=== PATIENT | female | born 1985 | race Caucasian/White ===

== ENCOUNTER → 2016-06-30 | Outpatient (CLI) | payer OTHER ==
[2016-06-30 13:11] LABS: Glucose 73 mg/dL (74-99); Non-African American GFR(MDRD) >60 (>60 ml/min/1.73 sqM)
[2016-06-30 13:14] LABS: CH 33.2; HCT 36.7 % (34.0-46.0); HDW 2.24; HGB 12.4 gm/dL (11.4-16.0); MCHC 33.7 g/dL (31.0-37.0); MCV 97.9 fL (80.0-100.0); RBC 3.75 m/uL (3.80-5.40); RDW 12.3 % (11.5-15.5); WBC 7.7 k/uL (3.8-10.6)
[2016-06-30 13:40] LABS: Hepatitis B Surface Ag Index 0.04
[2016-06-30 19:32] LABS: Treponemal Ab Non-Reactive (Non-Reactive)
[2016-07-01 06:23] LABS: HIV-1/HIV-2 Ab Screen NONREAC (NON REAC)
== END | disposition home or self-care (01) ==
LOC: LABWHC1 12:11
PROVIDERS: ATTEND Obstetrics & Gynecology
DX: Z34.81 Encounter for supervision of other normal pregnancy, first trimester (principal); Z3A.00 Weeks of gestation of pregnancy not specified
CPT/HCPCS: 36415; 82565; 82947; 85027; 86762; 86777; 86778; 86780; 86850; 86900; 86901; 87340; 87389

== ENCOUNTER → 2016-08-25 | Outpatient (CLI) | payer OTHER ==
[2016-08-26 14:33] LABS: Mis test requested (Blood) AFP QUAD Screen
== END | disposition home or self-care (01) ==
LOC: LABWHC1 11:55
PROVIDERS: ATTEND Obstetrics & Gynecology
DX: Z34.82 Encounter for supervision of other normal pregnancy, second trimester (principal)
CPT/HCPCS: 36415; 82105; 82677; 84702; 86336

== ENCOUNTER → 2016-08-29 | Outpatient (CLI) | payer OTHER ==
--- NOTE | 2016-08-29 22:20 | US ---
EXAMINATION TYPE: US OB anatomy transabd DATE OF EXAM: 08/29/2016 4:15 PM COMPARISON: NONE HISTORY: 31-year-old female LGA TECHNIQUE: Transabdominal (TA) scanning. FINDINGS: EXAM MEASUREMENTS: GESTATIONAL AGE / DATING Physician Established: (19 weeks/2 days) EDC: 01/21/17 Dates by LMP: unknown Dates by First Scan: no prior Dates by Current Scan for: (19 weeks/6 days +/- 1 week 3 days) EDC: 01/17/17 SURVEY IUP: Single PLACENTA: Anterior PREVIA: No previa. The inferior placental margin may measure approximately 3 cm from the internal cer vical os. GISELA: 15.0 cm Normal CERVICAL LENGTH (transabdominal: norm > 3.0cm): 3.4 cm BIOMETRY PRESENTATION: Vertex LIE: Transverse lie with head maternal LT BPD: 4.6 cm 20 weeks / 0 days HC: 17.5 cm 20 weeks / 0 days AC: 14.4 cm 19 weeks / 5 days FL: 3.0 cm 19 weeks / 3 days ESTIMATED WEIGHT IN GRAMS: 304 grams ESTIMATED WEIGHT IN LBS/OZS: 0 lbs. 11 oz. WEIGHT PERCENTAGE BASED ON ESTABLISHED DATE: 67.2 % HC/AC: 1.22 normal FL/AC: 21.10 normal HEART RATE: 140 bpm RHYTHM: Normal ANATOMY SEEN (within normal limits): Lateral Vent (< 1 cm) 0.6 cm Cisterna Magna (< 1.1 cm) 0.3 cm Nuchal Fold (< 0.6 cm) 0.4 cm Cerebellum (varies with age) 1.8 cm Choroid Plexus (bilateral) Midline Falx Cavus Septi Pellucidi Four Chamber Heart Stomach Situs Nose / Lips Diaphragm Kidneys (bilateral) Bladder Cord Insert Three Vessel Cord Longitudinal Spine Transverse Spine Arms (bilateral) Legs (bilateral) ANATOMY SUBOPTIMALLY VISUALIZED: Outflow tracts: LVOT/RVOT TECHNOLOGIST NOTES: Single viable IUP 19wks/6days with GUSTAVO of 01/17/17 IMPRESSION: 1. Single live intrauterine with established gestational age of 19 weeks 2 days. Current ul trasound biometry is concordant (19 weeks 6 days) placing the child at the 67th percentile for weight . 2. The images of the outflow tracts are suboptimal. The oyster buyer notes a normal appearance during real-time scanning. If desired, the patient can be brought back for a rescan in 1 to 2 weeks. Otherwi se, the visualized structures appear normal.
== END | disposition home or self-care (01) ==
LOC: RADUSWWP 15:34
PROVIDERS: ATTEND Obstetrics & Gynecology
DX: O36.62X0 Maternal care for excessive fetal growth, second trimester, not applicable or unspecified (principal); Z3A.19 19 weeks gestation of pregnancy
CPT/HCPCS: 76811

== ENCOUNTER → 2016-10-24 | Outpatient (CLI) | payer OTHER ==
[2016-10-24 14:24] LABS: CH 32.8; HCT 35.8 % (34.0-46.0); HDW 2.36; HGB 11.7 gm/dL (11.4-16.0); MCH 32.7 pg (25.0-35.0); MCHC 32.7 g/dL (31.0-37.0); MCV 99.9 fL (80.0-100.0); Mean Platelet Volume 7.9; RBC 3.58 m/uL (3.80-5.40); RDW 12.7 % (11.5-15.5)
== END | disposition home or self-care (01) ==
LOC: LABWHC1 12:40
PROVIDERS: ATTEND Obstetrics & Gynecology
DX: Z34.92 Encounter for supervision of normal pregnancy, unspecified, second trimester (principal)
CPT/HCPCS: 36415; 82950; 85027; 86850

== ENCOUNTER 2017-01-16 05:40 | Inpatient (IN) | payer OTHER ==
[2017-01-12 15:04] VITALS: BMI 24.4
--- NOTE | 2017-01-13 07:32 | P.HPOB ---
History of Present Illness H&P Date: 01/13/17 Chief Complaint: Repeat and tubal ligation. This patient is a pleasant 31-year-old 3 para 2 female estimated date of confinement 01/21/2017 estimated gestational age 39-2/7 weeks gestation who is admitted to labor and delivery for elective repeat section and also requesting tubal ligation. Patient's history is such that she had a previous vaginal delivery followed by a section for active herpes outbreak. Patient initially wanted to this however did develop a herpes outbreak at approximately 13 weeks and she has requested repeat section at this time. She's had no other episodes. She is also requesting permanent sterilization. She is Spring see also was complicated by gestational diabetes which has been managed by maternal medicine with excellent control. Review of Systems Constitutional: Denies chills, Denies fever Ears, nose, mouth and throat: Denies headache, Denies sore throat Cardiovascular: Denies chest pain, Denies shortness of breath Respiratory: Denies cough Gastrointestinal: Reports heartburn Genitourinary: Reports Menstruation: Reports amenorrhea Integumentary: Denies pruritus, Denies rash Neurological: Denies numbness, Denies weakness Past Medical History Additional Past Medical History / Comment(s): GESTATIONAL DIABETES -DIET CONTROLLED. , GENITAL HERPES. History of Any Multi-Drug Resistant Organisms: None Reported Past Surgical History: Section Additional Past Surgical History / Comment(s): CYST REMOVED FROM BREAST Past Anesthesia/Blood Transfusion Reactions: No Reported Reaction, Motion Sickness Past Psychological History: No Psychological Hx Reported Smoking Status: Former smoker Past Alcohol Use History: Occasional Additional Past Alcohol Use History / Comment(s): NO ALCOHOL DURING . QUIT SMOKING 9 YEARS AGO, SMOKED FOR 14 YEARS. 1 PPD. Past Drug Use History: None Reported - Past Family History Mother Family Medical History: No Reported History Medications and Allergies Home Medications Medication Instructions Recorded Confirmed Type Acyclovir [Zovirax] 400 mg PO TID PRN 01/12/17 01/12/17 History Pnv No.95/Ferrous Fum/Folic AC 1 each PO DAILY 01/12/17 01/12/17 History [ Multivitamin Tablet] Allergies Allergy/AdvReac Type Severity Reaction Status Date / Time diphenhydramine AdvReac Unknown Rapid Verified 01/12/17 14:44 [From Benadryl] Heart Rate Exam - OBG Physical Exam Abdomen: bowel sounds normal, no diffuse tenderness, no bruit present, no guarding noted, no hepatomegaly, no splenomegaly, no mass Vulva: both: normal Vagina: normal moisture, no discharge Cervix: Cervix was previously closed in the office. Cervix: no lesion, no discharge Uterus: enlarged (Fundal height in the office was 39 cm.) Results blood work shows she is O negative, rubella immune, hepatitis B negative, RPR nonreactive, quad screen was negative, Glucola was 211, group B strep was negative. Patient did receive RhoGAM on November 03. Assessment and Plan (1) Third trimester Narrative/Plan: This patient is a pleasant 31-year-old 3 para 2 female 39-2/7 weeks gestation was admitted to labor and delivery for elective repeat section and also requesting tubal ligation. Patient understands a tubal ligation is a permanent procedure however there is a failure rate of approximately 20-25 per thousand procedures done. She understands if she does become she is a 50% chance of a tubal or an ectopic . Patient understands surgery itself and apparently has risks including risks of infection, bleeding, possible injury to bowel, bladder, vessels, and/or other organs. Patient understands risk of DVT pulmonary embolism. All the patient's questions are answered and a written consent is obtained. Plan is repeat low transverse section and bilateral partial salpingectomy. Cord blood for Rh status. Status: Acute (2) Previous delivery affecting Status: Acute (3) Family planning Status: Acute (4) Gestational diabetes Status: Acute (5) Rh negative status during Status: Acute
[2017-01-16] MEDS ORDERED: LACTATED RINGERS 1,000 ML IV ONE (06:37)
[2017-01-16] MEDS ORDERED: CITRIC ACID-SODIUM CITRATE 15 ML CUP PO ONE (06:37)
[2017-01-16 06:59] LABS: Glucose,Whole Blood 80 mg/dL (75-99)
[2017-01-16 07:07] LABS: Basophils % (A) 0 %; CHCM 34.7; Eosinophils # (A) 0.1 k/uL (0-0.7); Eosinophils % (A) 2 %; HCT 38.5 % (34.0-46.0); HDW 2.48; Luc # (Auto) 0.15; Luc % (Auto) 2; Lymphocytes # (A) 2.3 k/uL (1.0-4.8); Lymphocytes % (A) 28 %; MCH 33.3 pg (25.0-35.0); MCHC 33.9 g/dL (31.0-37.0); MCV 98.3 fL (80.0-100.0); Mean Platelet Volume 9.2; Monocytes # (A) 0.5 k/uL (0-1.0); Monocytes % (A) 6 %; Neutrophils # (A) 5.1 k/uL (1.3-7.7); Neutrophils % (A) 63 %; RBC 3.92 m/uL (3.80-5.40); RDW 13.8 % (11.5-15.5); WBC 8.1 k/uL (3.8-10.6); WBC (Perox) 8.52
[2017-01-16] MEDS ORDERED: ceFAZolin 2 GM in SODIUM CHLORIDE 0.9% 100 ML IVPB ONE (07:14)
[2017-01-16] MEDS: LACTATED RINGERS 1,000 ML IV SCH ×4 (07:33→23:55)
[2017-01-16] MEDS ORDERED: ONDANSETRON 4 MG/2 ML VIAL ONE (07:45)
[2017-01-16] MEDS ORDERED: KETOROLAC 30 MG/ML 1 ML VIAL ONE (07:45)
[2017-01-16] MEDS ORDERED: NALBUPHINE 10 MG/ML AMPUL ONE (07:45)
[2017-01-16] MEDS ORDERED: MORPHINE SULFATE (PF) 0.3 MG/0.3 ML SYR ONE (07:45)
[2017-01-16] MEDS ORDERED: OXYTOCIN 10 UNIT/ML 1 ML VIAL ONE (07:45)
[2017-01-16] MEDS ORDERED: diphenhydrAMINE 50 MG/ML 1 ML VIAL IVP PRN (08:28)
[2017-01-16] MEDS ORDERED: Rhogam IMMUNE GLOBULIN 1,500 UNIT/1 ML IM ONE (08:28)
[2017-01-16] MEDS ORDERED: METOCLOPRAMIDE 5 MG/ML 2 ML VIAL IVP PRN (08:28)
[2017-01-16] MEDS ORDERED: ZOLPIDEM 5 MG TAB PO PRN (08:28)
[2017-01-16] MEDS ORDERED: ONDANSETRON 4 MG/2 ML VIAL IVP PRN (08:28)
[2017-01-16] MEDS ORDERED: ACETAMINOPHEN TAB 325 MG TAB PO PRN (08:28)
[2017-01-16] MEDS ORDERED: OXYTOCIN 20 UNITS/1000 ML NS 1,000 ML IV SCH (08:28)
[2017-01-16] MEDS ORDERED: SIMETHICONE 80 MG CHEWABLE PO PRN (08:28)
[2017-01-16] MEDS ORDERED: NALOXONE 0.4 MG/ML 1 ML VIAL IV PRN (08:28)
[2017-01-16] MEDS ORDERED: diphenhydrAMINE 25 MG CAP PO PRN (08:28)
--- NOTE | 2017-01-16 08:33 | P.OP ---
Date of Procedure: 01/16/17 Preoperative Diagnosis: #1: 39-2/7 week intrauterine . #2: Previous section desires repeat. #3: Multi parity desires permanent sterilization. Postoperative Diagnosis: Same Procedure(s) Performed: Repeat low transverse section and bilateral partial salpingectomy Implants: Anesthesia: spinal Surgeon: Buck Goldstein Household Chores #1: Sameera Rudd Estimated Blood Loss (ml): 600 Pathology: other (Placenta and bilateral fallopian tube segments) Condition: stable Disposition: floor Indications for Procedure: Please see dictated H&P for intimate details of this patient's admission. Brief summary this is a pleasant 31-year-old 3 para 2 female 39-2/7 weeks gestation who is admitted to labor and delivery for elective repeat section and also requesting permanent sterilization. Patient does understand a tubal ligation is considered permanent, however there is a failure rate of approximately 20-25 per thousand procedures done. Patient understands that surgery itself has risks including risks of infection, bleeding, possible injury bowel, bladder, vessels, and/or other organs. Understands risk of DVT and pulmonary embolism. All the patient's questions are answered and a written consent is obtained. Operative Findings: This is a vigorous viable male infant Apgars 8 and 9 delivery time was 0759 hours. Patient's uterus tubes and ovaries appear normal for term gestation. Description of Procedure: This patient has a Weems catheter placed to straight drain. She was subsequently taken to the operating room where she sat up and spinal anesthetic is administered without incident. With an adequate level of anesthesia she has abdominal prep and drape. Scalpels and taken the previous Pfannenstiel incision is then incised. I did remove the previous scar. Using a second scalpel I then incised down to the fascia. Fascia is then scored with scalpel and extended bilaterally using the Montiel scissors. Fascia is dissected off the rectus muscles sharply. Fascial incision extended bilaterally. The peritoneum was then identified and entered sharply. Peritoneal incision extended superior and inferior without difficulty. Bladder blade is then placed. Bladder peritoneum was taken down sharply with the Metzenbaum scissors. Scalpels and taken low transverse uterine incision is then made. Using a hemostat enter the uterine cavity bluntly and there is loss of clear fluid. This incision is extended bluntly as well. The 's head is then gently guided through the incision with fundal pressure delivered. Mouth and nares are bulb suctioned. There is no evidence of a nuchal cord. Then have delivery anterior posterior shoulder and rest this 's body. This is a vigorous viable male infant Apgars are 8 and 9 delivery time was 0759 hrs. After delivery of the infant the umbilical cord is doubly clamped and cut. Placenta is then manually extracted intact. Uterus is then externalized and uterine incision demarcated with Ramirez clamps. Uterine incision closed using 0 Vicryl in 2 layers. Excellent hemostasis is noted. Bladder peritoneum was then reapproximated using 3-0 Vicryl. Then turned my attention to the left fallopian tube approximately 4 cm from its cornual insertion a small window is made to the mesial salpinx with Bovie cautery. Using a 2-0 silk I doubly ligate the tube on both sides. Approximately 2 cm segment of tube was excised and handed off to pathology. Turned my attention of the right side and using similar technique ligate a section of the right fallopian tube. Again good hemostasis is noted. Excess fluid is removed from the abdomen and pelvis. Uterus placed back into the abdomen. Final inspection of the tubal ends and uterine incision showed be hemostatic. The parietal peritoneum was then closed using 0 Vicryl running fashion. Rectus muscle reapproximate 0 Vicryl interrupted fashion. Fascia is then closed using 0 PDS. Fascial incision is intact and hemostatic. Subcutaneous tissues and closed using a 3-0 Vicryl. Skin is and closed using deric. All counts are correct 3. There are no complications. Infant and mother stable delivery room.
[2017-01-16] MEDS: SENNOSIDES-DOCUSATE SODIUM 1 EACH TAB PO SCH ×2 (13:08→19:41)
[2017-01-16] MEDS ORDERED: SCOPOLAMINE 1.5MG/72HR PATCH TRANSDERM STA (19:36)
[2017-01-16] MEDS: KETOROLAC 30 MG/ML 1 ML VIAL IVP PRN (22:33)
[2017-01-17] MEDS: LACTATED RINGERS 1,000 ML IV SCH ×2 (03:57→19:56)
--- NOTE | 2017-01-17 06:07 | P.PNOBGPC ---
Subjective - Subjective Patient reports: Reports appetite normal, Reports pain well controlled, Reports ambulating normally : doing well, in NICU Objective - Vital Signs Latest vital signs: Vital Signs Temp Pulse Resp BP Pulse Ox 01/17/17 06:02 16 01/17/17 04:00 98.2 F 63 16 97/57 98 01/17/17 02:00 14 97 01/17/17 00:00 97.8 F 67 16 107/67 97 01/16/17 22:00 16 98 01/16/17 20:00 97.7 F 63 16 126/74 98 01/16/17 15:35 98.1 F 60 16 120/74 99 01/16/17 12:00 98.6 F 75 17 107/63 01/16/17 10:29 58 L 17 104/63 98 01/16/17 09:59 58 L 17 108/60 99 01/16/17 09:29 62 17 109/64 98 01/16/17 09:14 72 16 100/55 98 01/16/17 08:59 70 18 116/75 98 01/16/17 08:44 71 17 97/62 98 01/16/17 08:29 96.2 F L 71 17 103/67 98 01/16/17 06:39 96.7 F L 76 17 117/61 98 Intake and Output 01/16/17 01/16/17 01/17/17 14:59 22:59 06:59 Intake Total 100 1000 Output Total 550 300 Balance -450 700 Intake: Intake, IV Titration 1000 Amount Lactated Ringers 1,000 ml 1000 @ 125 mls/hr IV .Q8H [facility] Rx#:[id number] Oral 100 Output: Urine 500 300 Straight 300 Uretheral (Weems) 500 Emesis 50 Other: # Emeses 2 - Exam Lungs: bilateral: normal Chest: Normal S1, Normal S2 Extremities: Present: normal Abdomen: Present: normal appearance, soft. Absent: distention, tenderness Incision: Present: normal, dry, intact Uterus: Present: normal, firm Assessment and Plan (1) Third trimester Narrative/Plan: Postoperative day #1. Patient had some nausea and vomiting yesterday however this has resolved. She also has had some urinary retention related to her Duramorph spinal and has had to have intermittent catheterization. Patient is tolerating regular food today. Plan is to check a CBC, encourage continued ambulation, catheterize as needed but if she continues the straight catheter put a Weems to straight drain to rest her bladder for a bit. Continue routine care otherwise. Current Visit: Yes Status: Acute Code(s): Z34.93 - ENCNTR FOR SUPRVSN OF NORMAL PREG, UNSP, THIRD TRIMESTER SNOMED Code(s): 73958494 (2) Previous delivery affecting Current Visit: Yes Status: Acute Code(s): O34.219 - MATERNAL CARE FOR UNSP TYPE SCAR FROM PREVIOUS DEL SNOMED Code(s): 901682112 (3) Family planning Current Visit: Yes Status: Acute Code(s): Z30.09 - ENCOUNTER FOR OTH GENERAL CNSL AND ADVICE ON CONTRACEPTION SNOMED Code(s): 73768910 (4) Gestational diabetes Current Visit: Yes Status: Acute Code(s): O24.419 - GESTATIONAL DIABETES MELLITUS IN , UNSP CONTROL SNOMED Code(s): 22954782 (5) Rh negative status during Current Visit: Yes Status: Acute Code(s): O09.899 - SUPERVISION OF OTHER HIGH RISK PREGNANCIES, UNSP TRIMESTER SNOMED Code(s): 041491857
[2017-01-17] MEDS: KETOROLAC 30 MG/ML 1 ML VIAL IVP PRN (06:32)
[2017-01-17] MEDS: SENNOSIDES-DOCUSATE SODIUM 1 EACH TAB PO SCH ×2 (07:49→19:39)
[2017-01-17 08:03] LABS: Basophils % (A) 0 %; CHCM 33.9; Eosinophils # (A) 0.1 k/uL (0-0.7); Eosinophils % (A) 1 %; HGB 11.5 gm/dL (11.4-16.0); Luc # (Auto) 0.13; Luc % (Auto) 1; Lymphocytes # (A) 1.9 k/uL (1.0-4.8); Lymphocytes % (A) 16 %; MCH 33.1 pg (25.0-35.0); MCHC 32.8 g/dL (31.0-37.0); MCV 100.6 fL (80.0-100.0); Mean Platelet Volume 9.3; Monocytes # (A) 0.5 k/uL (0-1.0); Monocytes % (A) 4 %; Neutrophils # (A) 8.8 k/uL (1.3-7.7); Neutrophils % (A) 77 %; RBC 3.47 m/uL (3.80-5.40); RDW 13.6 % (11.5-15.5); WBC 11.4 k/uL (3.8-10.6); WBC (Perox) 11.46
--- NOTE | 2017-01-17 09:08 | P.PN ---
Progress Note - Text Date: 01/17/2017 Time: 706 The patient is status post section Vital signs stable VAS:0-10 Patient has no complaints of pain. The patient incurred some minimal itching yesterday, this itching is now subsiding. Pain meds to be managed by service.
[2017-01-17] MEDS: IBUPROFEN 600 MG TAB PO PRN ×2 (13:45→19:39)
[2017-01-17] MEDS: Acetaminophen-Codeine 300-30mg TAB PO PRN (23:00)
[2017-01-18] MEDS: Acetaminophen-Codeine 300-30mg TAB PO PRN ×4 (00:54→22:18)
[2017-01-18] MEDS: IBUPROFEN 600 MG TAB PO PRN ×2 (04:01→17:56)
--- NOTE | 2017-01-18 06:41 | P.PNOBGPC ---
Subjective - Subjective Patient reports: Reports appetite normal, Reports voiding normally, Reports pain well controlled, Reports ambulating normally : doing well, in NICU Objective - Vital Signs Latest vital signs: Vital Signs Temp Pulse Resp BP Pulse Ox 01/17/17 23:50 98.7 F 66 16 120/69 01/17/17 16:00 98.5 F 74 20 116/68 100 01/17/17 08:00 98.6 F 69 20 124/59 99 Intake and Output 01/17/17 01/17/17 01/18/17 14:59 22:59 06:59 Output Total 1200 Balance -1200 Output: Urine 1200 Other: # Voids 1 - Exam Lungs: bilateral: normal Chest: Normal S1, Normal S2 Extremities: Present: normal Abdomen: Present: normal appearance, soft. Absent: distention, tenderness Incision: Present: normal, dry, intact Uterus: Present: normal, firm - Labs Labs: Abnormal Lab Results - Last 24 Hours (Table) 01/17/17 Range/Units 07:50 WBC 11.4 H (3.8-10.6) k/uL RBC 3.47 L (3.80-5.40) m/uL MCV 100.6 H (80.0-100.0) fL Neutrophils # 8.8 H (1.3-7.7) k/uL Assessment and Plan (1) Third trimester Narrative/Plan: Post day #2. Patient is resting without complaints. Vital signs are stable and she is afebrile. Uterus is firm nontender and her incision is intact and dry. Patient is able to urinate without difficulty and tolerating regular diet. CBC yesterday was normal. Plan today is to continue routine postoperative care. Possible discharge home tomorrow. Current Visit: Yes Status: Acute Code(s): Z34.93 - ENCNTR FOR SUPRVSN OF NORMAL PREG, UNSP, THIRD TRIMESTER SNOMED Code(s): 56187091 (2) Previous delivery affecting Current Visit: Yes Status: Acute Code(s): O34.219 - MATERNAL CARE FOR UNSP TYPE SCAR FROM PREVIOUS DEL SNOMED Code(s): 198645544 (3) Family planning Current Visit: Yes Status: Acute Code(s): Z30.09 - ENCOUNTER FOR OTH GENERAL CNSL AND ADVICE ON CONTRACEPTION SNOMED Code(s): 27105520 (4) Gestational diabetes Current Visit: Yes Status: Acute Code(s): O24.419 - GESTATIONAL DIABETES MELLITUS IN , UNSP CONTROL SNOMED Code(s): 04327803 (5) Rh negative status during Current Visit: Yes Status: Acute Code(s): O09.899 - SUPERVISION OF OTHER HIGH RISK PREGNANCIES, UNSP TRIMESTER SNOMED Code(s): 638242407
[2017-01-18] MEDS: SENNOSIDES-DOCUSATE SODIUM 1 EACH TAB PO SCH ×2 (11:24→19:26)
[2017-01-18 16:52] VITALS: RESP 16
--- NOTE | 2017-01-19 06:35 | P.PNOBGPC ---
Subjective - Subjective Patient reports: Reports appetite normal, Reports voiding normally, Reports pain well controlled, Reports ambulating normally : doing well Objective - Vital Signs Latest vital signs: Vital Signs Temp Pulse Resp BP Pulse Ox 01/19/17 00:00 97.6 F 62 16 122/74 01/18/17 16:00 98.4 F 86 16 123/78 01/18/17 08:00 98.4 F 82 12 111/69 97 Intake and Output 01/18/17 01/18/17 01/19/17 14:59 22:59 06:59 Other: # Voids 1 - Exam Lungs: bilateral: normal Chest: Normal S1, Normal S2 Extremities: Present: normal Abdomen: Present: normal appearance, soft. Absent: distention, tenderness Incision: Present: normal, dry, intact Uterus: Present: normal, firm Assessment and Plan (1) Third trimester Narrative/Plan: Postoperative day #3. Patient is resting without complaints. Vital signs are stable she's afebrile. Uterus is firm nontender and her incision is intact and dry. My impression this is a normal postoperative course. Plan is to continue routine postoperative care and discharge home today. Current Visit: Yes Status: Acute Code(s): Z34.93 - ENCNTR FOR SUPRVSN OF NORMAL PREG, UNSP, THIRD TRIMESTER SNOMED Code(s): 43344272 (2) Previous delivery affecting Current Visit: Yes Status: Acute Code(s): O34.219 - MATERNAL CARE FOR UNSP TYPE SCAR FROM PREVIOUS DEL SNOMED Code(s): 584361089 (3) Family planning Current Visit: Yes Status: Acute Code(s): Z30.09 - ENCOUNTER FOR OTH GENERAL CNSL AND ADVICE ON CONTRACEPTION SNOMED Code(s): 70062610 (4) Gestational diabetes Current Visit: Yes Status: Acute Code(s): O24.419 - GESTATIONAL DIABETES MELLITUS IN , UNSP CONTROL SNOMED Code(s): 50738352 (5) Rh negative status during Current Visit: Yes Status: Acute Code(s): O09.899 - SUPERVISION OF OTHER HIGH RISK PREGNANCIES, UNSP TRIMESTER SNOMED Code(s): 383615489
--- NOTE | 2017-01-19 06:38 | P.DS ---
Providers Date of admission: 01/16/17 05:40 Expected date of discharge: 01/19/17 Attending physician: Buck Goldstein Primary care physician: Almas Talamantes - Discharge Diagnosis(es) (1) Third trimester Current Visit: Yes Status: Acute (2) Previous delivery affecting Current Visit: Yes Status: Acute (3) Family planning Current Visit: Yes Status: Acute (4) Gestational diabetes Current Visit: Yes Status: Acute (5) Rh negative status during Current Visit: Yes Status: Acute Hospital Course: Please see dictated H&P for this patient's admission. Brief summary this is a pleasant 31-year-old 3 para 2 female 39-2/7 weeks gestation admitted to labor and delivery for elective repeat section and tubal ligation. Patient undergoes above-named surgery. Please see dictated operative note. Postoperative 3 patient's felt be stable for discharge home follow up with me in 1 week for an incision check. Procedures: Repeat low transverse section and bilateral partial salpingectomy. Patient Condition at Discharge: Good Plan - Discharge Summary New Discharge Prescriptions: New Acetaminophen-Codeine 300-30mg [Tylenol w/codeine #3] 1 - 2 each PO Q4HR PRN #40 tab PRN Reason: Mild Pain Ibuprofen [Motrin] 600 mg PO Q6HR PRN #40 tab PRN Reason: Mild Pain Or Fever >= 100.5 No Action Acyclovir [Zovirax] 400 mg PO TID PRN PRN Reason: genital herpes Pnv No.95/Ferrous Fum/Folic AC [ Multivitamin Tablet] 1 each PO DAILY Discharge Medication List Acyclovir [Zovirax] 400 mg PO TID PRN 01/12/17 [History] Pnv No.95/Ferrous Fum/Folic AC [ Multivitamin Tablet] 1 each PO DAILY [History] Acetaminophen-Codeine 300-30mg [Tylenol w/codeine #3] 1 - 2 each PO Q4HR PRN # 40 tab 01/19/17 [Rx] Ibuprofen [Motrin] 600 mg PO Q6HR PRN #40 tab 01/19/17 [Rx] Follow up Appointment(s)/Referral(s): Buck Goldstein MD [STAFF PHYSICIAN] - 01/24/17 2:00 pm (Patient also has a visit on February 28 at 10:15 AM.) Patient Instructions/Handouts: (DC) Activity/Diet/Wound Care/Special Instructions: No strenuous activity or heavy lifting for 6 weeks. No intercourse for 6 weeks. Please call if any fever, chills, excessive vaginal bleeding, and/or abdominal pain. Discharge Disposition: HOME SELF-CARE
[2017-01-19] MEDS: Acetaminophen-Codeine 300-30mg TAB PO PRN (06:39)
[2017-01-19] MEDS: SENNOSIDES-DOCUSATE SODIUM 1 EACH TAB PO SCH (07:40)
[2017-01-19 08:46] VITALS: BP 120/75; PULSE 76; TEMP 98.5
== END 2017-01-19 10:56 | disposition home or self-care (01) | DRG 765 ==
LOC: 4FBP 05:40
PROVIDERS: ADMIT Obstetrics & Gynecology; ATTEND Obstetrics & Gynecology
PROC: 0UB70ZZ Excision of Bilateral Fallopian Tubes, Open Approach (ICD-10-PCS; 2017-01-16)
PROC: 3E0234Z Introduction of Serum, Toxoid and Vaccine into Muscle, Percutaneous Approach (ICD-10-PCS; 2017-01-16)
PROC: 10D00Z1 Extraction of Products of Conception, Low, Open Approach (ICD-10-PCS; principal; 2017-01-16 08:00)
DX: O34.211 Maternal care for low transverse scar from previous cesarean delivery (principal); O98.311 Other infections with a predominantly sexual mode of transmission complicating pregnancy, first trimester; O24.420 Gestational diabetes mellitus in childbirth, diet controlled; O26.893 Other specified pregnancy related conditions, third trimester; A60.00 Herpesviral infection of urogenital system, unspecified; Z3A.39 39 weeks gestation of pregnancy; Z37.0 Single live birth; Z30.2 Encounter for sterilization; Z67.41 Type O blood, Rh negative; T40.2X5A Adverse effect of other opioids, initial encounter; R33.0 Drug induced retention of urine; N85.8 Other specified noninflammatory disorders of uterus; Z87.891 Personal history of nicotine dependence; Z79.899 Other long term (current) drug therapy; Z88.8 Allergy status to other drugs, medicaments and biological substances; Y92.234 Operating room of hospital as the place of occurrence of the external cause
CPT/HCPCS: 85025; 85461; 86850; 86870; 86880; 86900; 86901; 88302; 88307

== ENCOUNTER → 2019-01-14 | Outpatient (CLI) | payer OTHER ==
[2019-01-14 12:39] LABS: Basophils # (A) 0.1 k/uL (0-0.2); Basophils % (A) 1 %; Eosinophils # (A) 0.1 k/uL (0-0.7); Eosinophils % (A) 1 %; HCT 41.8 % (34.0-46.0); HGB 14.1 gm/dL (11.4-16.0); Lymphocytes % (A) 33 %; MCH 32.7 pg (25.0-35.0); MCHC 33.6 g/dL (31.0-37.0); MCV 97.4 fL (80.0-100.0); Mean Platelet Volume 7.6; Monocytes # (A) 0.4 k/uL (0-1.0); Monocytes % (A) 5 %; Neutrophils # (A) 5.3 k/uL (1.3-7.7); Neutrophils % (A) 59 %; Platelet Count 212 k/uL (150-450); RDW 12.7 % (11.5-15.5)
== END | disposition home or self-care (01) ==
LOC: LABWHC1 12:13
PROVIDERS: ATTEND Obstetrics & Gynecology
DX: Z01.812 Encounter for preprocedural laboratory examination (principal)
CPT/HCPCS: 36415; 85025

== ENCOUNTER 2019-01-24 06:18 | Day surgery (SDC) | payer OTHER ==
[2019-01-21 17:38] VITALS: BMI 18.8
--- NOTE | 2019-01-23 07:13 | P.HPOB ---
History of Present Illness H&P Date: 01/23/19 Chief Complaint: Menorrhagia. This patient is a pleasant 33-year-old 3 para 3 female who presented to my office with complaints of long heavy menstrual cycles. She's had a tubal ligation in the past and did not want any hormone therapy. Patient is requesting NovaSure endometrial ablation at this time. Review of Systems Menstruation: Reports menses 8 or > days, Reports period heavy Past Medical History Additional Past Medical History / Comment(s): Hx. GENITAL HERPES-no current issues, frequent heavy periods History of Any Multi-Drug Resistant Organisms: None Reported Past Surgical History: Breast Surgery, Section, Tubal Ligation Additional Past Surgical History / Comment(s): CYST REMOVED FROM BREAST, C/S x2 Past Anesthesia/Blood Transfusion Reactions: Motion Sickness, Postoperative Nausea & Vomiting (PONV) Past Psychological History: No Psychological Hx Reported Smoking Status: Former smoker Past Alcohol Use History: None Reported Past Drug Use History: None Reported - Past Family History Mother Family Medical History: No Reported History Medications and Allergies Home Medications Medication Instructions Recorded Confirmed Type valACYclovir HCL [Valtrex] 1 gm PO DAILY 01/21/19 01/21/19 History Allergies Allergy/AdvReac Type Severity Reaction Status Date / Time diphenhydramine AdvReac Unknown Rapid Verified 01/21/19 17:25 [From Benadryl] Heart Rate Exam - OBG Physical Exam Abdomen: bowel sounds normal, no diffuse tenderness, no bruit present, no guarding noted, no hepatomegaly, no splenomegaly, no mass Vulva: both: normal Vagina: normal moisture, no discharge Cervix: no lesion, no discharge Uterus: normal size, normal contour Assessment and Plan Assessment: This is a pleasant 33-year-old 3 para 3 female with long-standing menorrhagia requesting endometrial ablation. Plan is hysteroscopy, D&C, NovaSure endometrial ablation. Patient understands this surgery and risks including risks of infection, bleeding, possible uterine perforation, and/or thermal injury. All the patient's questions have been answered and a written consent is obtained. (1) Menorrhagia Status: Acute Code(s): N92.0 - EXCESSIVE AND FREQUENT MENSTRUATION WITH REGULAR CYCLE SNOMED Code(s): 283511110
[~2019-01-24 06:18] MED LIST: DEXAMETHASONE SOD PHOSPHATE 10 MG/ML 1 ML VIAL IV ONE; HYDROmorphone 0.5 MG/0.5 ML SYRINGE IVP PRN; LACTATED RINGERS 1,000 ML IV SCH; ONDANSETRON 4 MG/2 ML VIAL IVP ONE; Pre Op ABX Message 1 EACH MISC MISCELLANE ONE
[2019-01-24] MEDS ORDERED: LIDOCAINE 1% 20 ML VIAL (10MG/ML) FOR IV START INTRADERMA ONE (06:45)
[2019-01-24] MEDS ORDERED: SCOPOLAMINE 1.5MG/72HR PATCH TRANSDERM ONE (06:57)
[2019-01-24] MEDS ORDERED: LIDOCAINE 1% INJ 10MG/ML (20 ML MDV) ONE (07:12)
[2019-01-24] MEDS ORDERED: fentaNYL (PF) 50 MCG/ML 2 ML AMP ONE (07:12)
[2019-01-24] MEDS ORDERED: MIDAZOLAM 2 MG/2 ML VIAL ONE (07:12)
[2019-01-24] MEDS ORDERED: PROPOFOL 10 MG/ML 20 ML VIAL IV ONE (07:12)
[2019-01-24 07:54] VITALS: TEMP 97.5
--- NOTE | 2019-01-24 07:55 | P.OP ---
Date of Procedure: 01/24/19 Preoperative Diagnosis: Menorrhagia Postoperative Diagnosis: Same Procedure(s) Performed: #1: Hysteroscopy. 2: Dilation and curettage. #3: NovaSure endometrial ablation Anesthesia: MAC Surgeon: Buck Goldstein Estimated Blood Loss (ml): 10 IV fluids (ml): 600 Urine output (ml): 15 Pathology: other (Uterine curettings) Condition: stable Disposition: PACU Indications for Procedure: Please see dictated H&P for intimate details of this patient's admission. Brief summary is a pleasant 33-year-old multiparous patient who's had long-standing menorrhagia requesting NovaSure endometrial ablation for treatment. Patient I have discussed the surgery and risks including risks of infection, bleeding, possible uterine perforation, and/or thermal injury. All the patient's questions are answered and a written consent is obtained. Operative Findings: This patient is a normal appearing endometrial cavity. Description of Procedure: This patient is taken to the operating room where she is laid in the supine position. She subsequent undergoes general mask anesthesia without incident. With an adequate level of anesthesia she's placed in dorsal lithotomy position. She has a vaginal and perineal prep and drape. Examination under anesthesia shows a mid position uterus of normal size. The bladder is drained at this time for 15 mL of clear urine. Weighted speculum placed in the posterior vagina. Anterior lip of the cervix is grabbed with an Allis clamp. Uterus is then sounded this time to 8 cm. Gentle dilation is done of the endocervix to allow the hysteroscope easily and uterine cavity. Using saline solution hysteroscopy is performed uterine cavity is visualized and appears to be normal. Uterine cavity is measured a length of 5.5 cm. This done the cervix is dilated gently more to allow a small curette easily uterine cavity a gentle but thorough 4 quadrant curettage is done for adequate sampling. With this done the NovaSure device is then opened appears to be intact. It is set at a length of 5.5 cm is then seated in place and opens up to a width of 4.7 cm. At this time the cavity integrity test is done and it passes. It is then enabled for 55 seconds. With this done the NovaSure device is then removed and appears to be intact. Hysteroscopy is once again performed and the uterine cavity appears to be ablated up to the endocervix. At this time the procedure is ended. The Allis clamp and weighted speculum removed. All counts correct 3. There are no complications. Patient is awakened from anesthesia and taken recovery room in satisfactory condition.
[2019-01-24 08:59] VITALS: RESP 16
[2019-01-24 09:41] VITALS: BP 118/80; PULSE 63
== END 2019-01-24 09:52 | disposition home or self-care (01) ==
LOC: OR 06:18
PROVIDERS: ATTEND Obstetrics & Gynecology
DX: N92.0 Excessive and frequent menstruation with regular cycle (principal); Z98.51 Tubal ligation status; Z87.891 Personal history of nicotine dependence; B00.9 Herpesviral infection, unspecified; Z79.899 Other long term (current) drug therapy; Z88.8 Allergy status to other drugs, medicaments and biological substances
CPT/HCPCS: 58563; 88305; 81025; J2250; J1100; J2405; J2001; J3010; J2704

== ENCOUNTER → 2024-03-14 | Outpatient (CLI) | payer BC ==
--- NOTE | 2024-03-14 14:26 | MM ---
Reason for Exam: Screening (asymptomatic). Baseline mammogram. Patient History: Menarche at age 11. First Full-Term at age 16. Bilateral Implants. Maternal grandmother had breast cancer. Last menstrual period: 02/23/2024 Risk Values: Kalyn 5 year model risk: 0.4%. NCI Lifetime model risk: 7.3%. Prior Study Comparison: Patient's first Mammogram. No prior studies available for comparison. Tissue Density: The breasts are extremely dense, which lowers the sensitivity of mammography. Findings: Analyzed By CAD. Asymmetric nodular density upper left breast approximately 10 cm from the nipple. Additional views are recommended. Bilateral breast implants are intact. No suspicious microcalcifications. No right-sided breast mass seen. Overall Assessment: Incomplete: need additional imaging evaluation, BI-RAD 0 Management: Diagnostic Mammogram of the left breast. . Patient should continue monthly self-breast exams. A clinical breast exam by your physician is recommended on an annual basis. This exam should not preclude additional follow-up of suspicious palpable abnormalities. Note on Kalyn scores and lifetime risk: 1. A Kalyn score greater than 3% is considered moderate risk. If this is the case, consider specialist referral to assess eligibility for a risk reducing agent. 2. If overall lifetime risk for the development of breast cancer is 20% or higher, the patient may qualify for future screening with alternating mammogram and breast MRI. [facility], , 03/14/2024 2:24 PM. Electronically signed and approved by: Gadiel Nesbitt M.D. Radiologis
== END | disposition home or self-care (01) ==
LOC: RADMAMWWP 07:26
PROVIDERS: ATTEND Obstetrics & Gynecology Gynecology
DX: Z12.31 Encounter for screening mammogram for malignant neoplasm of breast (principal); Z80.3 Family history of malignant neoplasm of breast
CPT/HCPCS: 77063; 77067

== ENCOUNTER → 2024-03-26 | Outpatient (CLI) | payer BC ==
--- NOTE | 2024-03-26 14:29 | MM ---
Reason for Exam: Additional evaluation requested from prior study. Last screening mammogram was performed less than 1 month ago. Patient History: Menarche at age 11. First Full-Term at age 16. Bilateral Implants. Maternal grandmother had breast cancer. Risk Values: Kalyn 5 year model risk: 0.4%. NCI Lifetime model risk: 7.3%. Prior Study Comparison: 03/14/2024 Bilateral MG 3D screen mammo imp/cad., [facility]. Tissue Density: Left: The breasts are extremely dense, which lowers the sensitivity of mammography. Findings: Analyzed By CAD. Spot compression views and demonstrates a near complete dispersement on compression view. Precautionary ultrasound recommended. Overall Assessment: Incomplete: need additional imaging evaluation, BI-RAD 0 Management: Diagnostic Breast Ultrasound of the left breast. . Results were given to the patient verbally at the time of exam. Patient should continue monthly self-breast exams. A clinical breast exam by your physician is recommended on an annual basis. This exam should not preclude additional follow-up of suspicious palpable abnormalities. Note on Kalyn scores and lifetime risk: 1. A Kalyn score greater than 3% is considered moderate risk. If this is the case, consider specialist referral to assess eligibility for a risk reducing agent. 2. If overall lifetime risk for the development of breast cancer is 20% or higher, the patient may qualify for future screening with alternating mammogram and breast MRI. [facility], , 03/26/2024 2:26 PM. Electronically signed and approved by: Brian Olivares M.D. Radiologis
--- NOTE | 2024-03-26 15:01 | USB ---
Reason for Exam: Additional evaluation requested from prior study. Patient History: Menarche at age 11. First Full-Term at age 16. Bilateral Implants. Maternal grandmother had breast cancer. Risk Values: Kalyn 5 year model risk: 0.4%. NCI Lifetime model risk: 7.3%. Technique: Method: Targeted. Doppler: Color. Patient Position: Supine. Prior Study Comparison: 03/14/2024 Bilateral MG 3D screen mammo imp/cad., [facility]. Findings: The upper outer quadrant of the left breast, the axilla of the left breast and the retroareolar of the left breast were scanned. A complete US of all four quadrants of the breast and retro-areolar region were reviewed. No solid or cystic masses are identified.. Overall Assessment: Probably benign, BI-RAD 3 Management: Diagnostic Mammogram of the left breast in 6 months. A clinical breast exam by your physician is recommended on an annual basis and results should be correlated with mammographic findings. This exam should not preclude additional follow-up of suspicious palpable abnormalities. Results were given to the patient verbally at the time of exam. [facility], , 03/26/2024 2:58 PM. Electronically signed and approved by: Brian Olivares M.D. Radiologis
== END | disposition home or self-care (01) ==
LOC: RADMAMWWP 14:06
PROVIDERS: ATTEND Obstetrics & Gynecology Gynecology
CPT/HCPCS: 77061; 77065

== ENCOUNTER → 2024-10-21 | Outpatient (CLI) | payer BC ==
--- NOTE | 2024-10-21 08:03 | MM ---
Reason for Exam: Follow-up at short interval from prior study. Last screening mammogram was performed 7 month(s) ago. Patient History: Menarche at age 11. First Full-Term at age 16. Patient used Hormonal Contraceptives for 17 years. Bilateral Implants. Maternal grandmother had breast cancer. Risk Values: Kalyn 5 year model risk: 0.4%. NCI Lifetime model risk: 7.3%. Prior Study Comparison: 03/14/2024 Bilateral MG 3D screen mammo imp/cad., [facility]. 03/26/2024 Left MG 3D work up w/cad LT, [facility]. Tissue Density: Left: The breasts are extremely dense, which lowers the sensitivity of mammography. Findings: Analyzed By CAD. Breast implant redemonstrated. A few benign-appearing round calcifications medially are redemonstrated. No suspicious new group of microcalcification or distortion in the left breast. Overall Assessment: Benign, BI-RAD 2 Management: Screening Mammogram of both breasts in 6 months. Back on schedule. Results were given to the patient verbally at the time of exam. Patient should continue monthly self-breast exams. A clinical breast exam by your physician is recommended on an annual basis. This exam should not preclude additional follow-up of suspicious palpable abnormalities. Note on Kalyn scores and lifetime risk: 1. A Kalyn score greater than 3% is considered moderate risk. If this is the case, consider specialist referral to assess eligibility for a risk reducing agent. 2. If overall lifetime risk for the development of breast cancer is 20% or higher, the patient may qualify for future screening with alternating mammogram and breast MRI. [facility], , 10/21/2024 8:00 AM. Electronically signed and approved by: Demian Schultz M.D.
== END | disposition home or self-care (01) ==
LOC: RADMAMWWP 07:30
PROVIDERS: ATTEND Obstetrics & Gynecology Gynecology
DX: R92.8 Other abnormal and inconclusive findings on diagnostic imaging of breast (principal); R92.342 Mammographic extreme density, left breast; R92.1 Mammographic calcification found on diagnostic imaging of breast; Z80.3 Family history of malignant neoplasm of breast; Z92.0 Personal history of contraception
CPT/HCPCS: 77061; 77065